=== PATIENT | male | born 1995 | race Caucasian/White ===

== ENCOUNTER 2016-09-18 17:52 | Inpatient (IN) | payer BC, MEDICAID ==
[~2016-09-18] VITALS: Ht 172.7 cm; Wt 59.4 kg
[2016-09-18] VITALS (9 sets, daily range): BP systolic 120–146; BP diastolic 55–97; PULSE 89–112; RESP 16–22; TEMP 97.4; O2SAT 96–100
[~2016-09-18 17:52] MED LIST: HUMSS SQ
[2016-09-18] MEDS ORDERED: SODIUM CHLOR 0.9% 1000 ML INJ 1,000 ML IV ONE ×2 (18:22→18:52)
--- NOTE | 2016-09-18 18:29 | PD ---
HPI Chief Complaint: GI Complaint Time Seen by Provider: 18:18 Travel History International Travel<30 days: No Contact w/Intl Traveler<30days: No Traveled to known affect area: No History of Present Illness HPI This patient complains of nausea and vomiting and general malaise. He feels thirsty. He is an insulin-dependent diabetic didn't bother to take his insulin today or yesterday. When I ask him on he can not come up with a reasonable answer. Sounds like he just didn't feel like it. Denies fever. He's had some runny nose and congestion. Symptoms are moderately severe. No alleviating factors. Duration is 24 hours. Accu-Chek now is 437 PFSH Past Medical History Diabetes: Yes (type 1 ) Social History Alcohol Use: No Tobacco Use: No Substance Use: No Allergies-Medications (Allergen,Severity, Reaction): Coded Allergies: No Known Allergies (Unverified , 09/18/16) Reported Meds & Prescriptions Reported Meds & Active Scripts Active Reported Novolin R Inj (Insulin Human Regular) 1,000 Unit/10 Ml Vial 0 SQ DIRECTED Sliding Scale As Directed. Lantus Inj (Insulin Glargine) 1,000 Unit/10 Ml Vial 17 Units SQ DAILY Review of Systems General / Constitutional: No: Fever Eyes: No: Visual changes HENT: Positive: Rhinorrhea, No: Headaches Cardiovascular: No: Chest Pain or Discomfort Respiratory: No: Shortness of Breath Gastrointestinal: Positive: Nausea, Vomiting, No: Abdominal Pain Genitourinary: No: Dysuria Musculoskeletal: Positive: Weakness, Cramping, No: Pain Skin: No Rash Neurologic: Positive: Weakness Psychiatric: No: Depression Endocrine: No: Polydipsia Hematologic/Lymphatic: No: Easy Bruising Physical Exam Narrative GENERAL: Thin well-developed patient with nausea and vomiting and malaise and cramping . SKIN: Warm and dry. HEAD: Atraumatic. Normocephalic. EYES: Pupils equal and round. No scleral icterus. No injection or drainage. ENT: No nasal bleeding or discharge. Mucous membranes pink and dry NECK: Trachea midline. No JVD. CARDIOVASCULAR: Regular rate and rhythm. No murmur appreciated. RESPIRATORY: No accessory muscle use. Clear to auscultation. Breath sounds equal bilaterally. GASTROINTESTINAL: Abdomen soft, non-tender, nondistended. Hepatic and splenic margins not palpable. MUSCULOSKELETAL: No obvious deformities. No clubbing. No cyanosis. No edema. NEUROLOGICAL: Awake and alert. No obvious cranial nerve deficits. Motor grossly within normal limits. Normal speech. PSYCHIATRIC: Appropriate mood and affect; insight and judgment poor given his noncompliance for no particular reason. Data Data Last Documented VS Vital Signs Date Time Temp Pulse Resp B/P Pulse Ox O2 Delivery O2 Flow Rate FiO2 09/18/16 19:02 96 18 146/71 99 Room Air 09/18/16 18:10 97.4 Orders Complete Blood Count With Diff (09/18/16 18:22) Comprehensive Metabolic Panel (09/18/16 18:22) Beta Hydroxybutyrate (Acetone) (09/18/16 18:22) Arterial Blood Gas (Abg) (09/18/16 18:22) Ecg Monitoring (09/18/16 18:22) Iv Access Insert/Monitor (09/18/16 18:22) Oximetry (09/18/16 18:22) NPO (09/18/16 18:22) Sodium Chlor 0.9% 1000 Ml Inj (Ns 1000 M (09/18/16 18:22) Sodium Chlor 0.9% 1000 Ml Inj (Ns 1000 M (09/18/16 18:52) Sodium Chloride 0.9% Flush (Ns Flush) (09/18/16 18:30) Insulin Human Regular Inj (Novolin R Inj (09/18/16 18:30) Sodium Chlor 0.9% 1000 Ml Inj (Ns 1000 M (09/18/16 18:50) Dext 5%-Nacl 0.9% 1000 Ml Inj (D5w-Ns 10 (09/18/16 18:50) Insulin Regular (Iv Infusion) (Novolin R (09/18/16 19:00) Admit To Inpatient (09/18/16 ) Manufacturing Operator / Telemetry (09/18/16 19:27) ^ Insert Iv (09/18/16 19:27) ^ Teach Patient (09/18/16 19:27) Diet Npo (09/19/16 Breakfast) Bedside Glucose ELIU.Q1H (09/18/16 19:27) Sodium Chlor 0.9% 1000 Ml Inj (Ns 1000 M (09/18/16 19:27) Potassium Chlor 40 Meq Premix (Kcl 40 Me (09/18/16 19:30) Potassium Chlor 40 Meq Premix (Kcl 40 Me (09/18/16 19:30) Potassium Chlor 20 Meq Premix (Kcl 20 Me (09/18/16 19:30) Potassium Chlor 20 Meq Premix (Kcl 20 Me (09/18/16 19:30) Potassium Chlor 20 Meq Premix (Kcl 20 Me (09/18/16 19:30) Potassium Chlor 20 Meq Premix (Kcl 20 Me (09/18/16 19:30) Potassium Chlor 20 Meq Premix (Kcl 20 Me (09/18/16 19:30) Potassium Chlor 20 Meq Premix (Kcl 20 Me (09/18/16 19:30) Sodium Bicarbonate 8.4% Inj (Sodium Bica (09/18/16 19:30) Sodium Bicarbonate 8.4% Inj (Sodium Bica (09/18/16 19:30) Sodium Phosphate Inj (Sodium Phosphate I (09/18/16 19:30) Basic Metabolic Panel (Bmp) (09/19/16 00:27) Basic Metabolic Panel (Bmp) (09/19/16 06:27) Basic Metabolic Panel (Bmp) (09/19/16 12:27) Basic Metabolic Panel (Bmp) (09/19/16 18:27) Magnesium (Mg) (09/19/16 00:27) Magnesium (Mg) (09/19/16 06:27) Magnesium (Mg) (09/19/16 12:27) Magnesium (Mg) (09/19/16 18:27) Phosphorus (Po4) (09/19/16 00:27) Phosphorus (Po4) (09/19/16 06:27) Phosphorus (Po4) (09/19/16 12:27) Phosphorus (Po4) (09/19/16 18:27) Beta Hydroxybutyrate (Acetone) (09/19/16 06:27) Beta Hydroxybutyrate (Acetone) (09/19/16 18:27) ^ Initiate Protocol (09/18/16 19:27) ^ Instruction (09/18/16 19:27) [facility] (09/18/16 19:30) Chlorhexidine 2% Cloth (Chlorhexidine 2% (09/19/16 04:00) Chlorhexidine 2% Cloth (Chlorhexidine 2% (09/18/16 19:30) [facility]sa Pcr Surveillance (09/18/16 19:27) Inpatient Certification (09/18/16 ) Ondansetron Inj (Zofran Inj) (09/18/16 19:30) Bisacodyl Supp (Dulcolax Supp) (09/18/16 19:30) Scd Bilateral/Knee High ELIU.BID (09/18/16 19:27) Marquez Bilateral/Knee High ELIU.QSHIFT (09/18/16 19:27) Acetaminophen (Tylenol) (09/18/16 19:30) Acetamin-Hydrocod 325-5 Mg ([place] 5-325 (09/18/16 19:30) Acetamin-Hydrocod 325-10 Mg ([place] 10-32 (09/18/16 19:30) Admit Order (Ed Use Only) (09/18/16 19:27) Labs Laboratory Tests Test 09/18/16 09/18/16 18:15 18:35 White Blood Count 14.7 TH/MM3 Red Blood Count 5.89 MIL/MM3 Hemoglobin 17.7 GM/DL Hematocrit 53.3 % Mean Corpuscular Volume 90.4 FL Mean Corpuscular Hemoglobin 30.0 PG Mean Corpuscular Hemoglobin 33.2 % Concent Red Cell Distribution Width 11.4 % Platelet Count 373 TH/MM3 Mean Platelet Volume 9.5 FL Neutrophils (%) (Auto) 88.2 % Lymphocytes (%) (Auto) 8.1 % Monocytes (%) (Auto) 3.3 % Eosinophils (%) (Auto) 0.1 % Basophils (%) (Auto) 0.3 % Neutrophils # (Auto) 13.0 TH/MM3 Lymphocytes # (Auto) 1.2 TH/MM3 Monocytes # (Auto) 0.5 TH/MM3 Eosinophils # (Auto) 0.0 TH/MM3 Basophils # (Auto) 0.0 TH/MM3 CBC Comment DIFF FINAL Differential Comment Sodium Level 135 MEQ/L Potassium Level 3.7 MEQ/L Chloride Level 95 MEQ/L Carbon Dioxide Level 13.1 MEQ/L Anion Gap 27 MEQ/L Blood Urea Nitrogen 14 MG/DL Creatinine 1.40 MG/DL Estimat Glomerular Filtration 65 ML/MIN Rate Random Glucose 420 MG/DL Calcium Level 9.6 MG/DL Total Bilirubin 0.8 MG/DL Aspartate Amino Transf 20 U/L (AST/SGOT) Alanine Aminotransferase 28 U/L (ALT/SGPT) Alkaline Phosphatase 161 U/L Total Protein 8.7 GM/DL Albumin 5.0 GM/DL B-Hydroxybutyrate 9.08 MMOL/L Blood Gas Puncture Site RT RADIAL Blood Gas Patient Temperature 98.6 Blood Gas HCO3 9 mmol/L Blood Gas Base Excess -18.4 mmol/L Blood Gas Oxygen Saturation 95 % Arterial Blood pH 7.18 Arterial Blood Partial 24 mmHG Pressure CO2 Arterial Blood Partial 125 mmHG Pressure O2 Arterial Blood Oxygen Content 24.2 Vol % Arterial Blood 1.7 % Carboxyhemoglobin Arterial Blood Methemoglobin 1.4 % Blood Gas Hemoglobin 18.0 G/DL Oxygen Delivery Device RA Blood Gas Inspired Oxygen 21 % MDM Medical Decision Making Medical Screen Exam Complete: Yes Emergency Medical Condition: Yes Medical Record Reviewed: Yes Differential Diagnosis DKA, dehydration, noncompliance Narrative Course I have reviewed the patient's electronic medical record. IV placed I gave him 2 full liters normal saline IV bolus I gave him 12 units IV regular insulin Patient is hyperglycemic and has prominent ketone breath, his presentation is concerning and consistent with DKA therefore appears critically ill CBC shows some leukocytosis otherwise normal Metabolic profile shows hyperglycemia and decreased bicarbonate LFTs are normal Beta hydroxybutyrate is elevated at 9 ABG significant abnormal with pH of 7.18 Patient has DKA and is critically ill. I've initiated insulin drip and more IV fluid I reviewed with the hospitalist will admit to the intermediate care for close monitoring Critical Care Narrative Aggregate critical care time was 40 minutes. Time to perform other separately billable procedures was not included in the critical care time. My time did not include minutes spent treating any other patients simultaneously or on activities that did not directly contribute to the patient's treatment. The services I provided to this patient were to treat and/or prevent clinically significant deterioration that could result in: Cardiac arrhythmia, metabolic instability, cardiopulmonary arrest I provided critical care services requiring my management, as noted below: Chart data review, documentation time, medication orders and management, vital sign assessments/reviewing monitor data, ordering and reviewing lab tests, ordering and interpreting/reviewing x-rays and diagnostic studies, care of the patient and discussion of the patient with the admitting physicians. Diagnosis Primary Impression: DKA (diabetic ketoacidoses) Qualified Code: E10.10 - Diabetic ketoacidosis without coma associated with type 1 diabetes mellitus Admitting Information Admitting Physician Requests: Admit Ronaldo Vallecillo MD Sep 18, 2016 18:29
[2016-09-18] MEDS ORDERED: INSULIN HUMAN REGULAR 1,000 UNITS/10 ML VIAL IVP ONE (18:30)
[2016-09-18] MEDS ORDERED: SODIUM CHLORIDE 0.9% FLUSH 5 ML FLUSH IVF PRN (18:30)
[2016-09-18 18:42] LABS: BLOOD GAS BASE EXCESS -18.4 mmol/L (-2-2); BLOOD GAS CARBOXYHEMOGLOBIN 1.7 % (0-4); BLOOD GAS HCO3 9 mmol/L (22-26); BLOOD GAS METHEMOGLOBIN 1.4 % (0-2); BLOOD GAS O2 HGB SATURATION 95 % (90-100); BLOOD GAS OXYGEN CONTENT 24.2 Vol % (12.0-20.0); BLOOD GAS PCO2 24 mmHG (38-42); BLOOD GAS PO2 125 mmHG (61-120); CRITICAL VALUE YES; DRAW SITE RT RADIAL; FIO2 21 %; NUMBER OF ARTERIAL PUNCTURES 1; OXYGEN DEVICE RA; STAT YES; TEMP CORR TO 98.6; ULNAR PULSE PRESENT
[2016-09-18 18:48] LABS: BASOPHIL % 0.3 % (0.0-2.0); EOSINOPHIL % 0.1 % (0.0-4.0); HEMATOCRIT 53.3 % (39.0-51.0); LYMPH % 8.1 % (9.0-44.0); LYMPHOCYTE # 1.2 TH/MM3 (1.0-4.8); MEAN CELL VOLUME 90.4 FL (80.0-100.0); MEAN CORPUSCULAR HGB CONC 33.2 % (32.0-36.0); MONO % 3.3 % (0.0-8.0); NEUT % 88.2 % (16.0-70.0); PLATELET COUNT 373 TH/MM3 (150-450); RED BLOOD COUNT 5.89 MIL/MM3 (4.50-5.90); RED CELL DISTRIBUTION WIDTH 11.4 % (11.6-17.2); WHITE BLOOD COUNT 14.7 TH/MM3 (4.0-11.0)
[2016-09-18] MEDS ORDERED: LANTUS2P SQ (18:50)
[2016-09-18] MEDS ORDERED: NOVORP2 SQ (18:50)
[2016-09-18 18:56] LABS: HEMO FLAGS DIFF FINAL
[2016-09-18 18:58] LABS: CHLORIDE 95 MEQ/L (98-107); POTASSIUM 3.7 MEQ/L (3.5-5.1); SODIUM (NA) 135 MEQ/L (136-145)
[2016-09-18] MEDS ORDERED: INSULIN REGULAR (IV INFUSION) 100 UNITS in SODIUM CHLORIDE 0.9% INJ 99 ML IV SCH (19:00)
[2016-09-18 19:02] LABS: ANION GAP 27 MEQ/L (5-15); BICARBONATE 13.1 MEQ/L (21.0-32.0)
[2016-09-18 19:13] LABS: ALKALINE PHOSPHATASE 161 U/L (45-117); ALT (GPT) 28 U/L (9-52); AST (GOT) 20 U/L (15-39); BLOOD UREA NITROGEN 14 MG/DL (7-18); GLOMERULAR FILTRATION RATE 65 ML/MIN (>89); TOTAL BILIRUBIN ADULT 0.8 MG/DL (0.2-1.0)
[2016-09-18 19:20] LABS: BETA-HYDROXYBUTYRATE 9.08 MMOL/L (0.00-0.39)
[2016-09-18] MEDS ORDERED: SODIUM CHLOR 0.9% 1000 ML INJ 1,000 ML IV SCH (19:27)
[2016-09-18] MEDS ORDERED: CHLORHEXIDINE GLUCONATE 2 % 1 PACK (2 CLOTHS) TOP PRN (19:30)
[2016-09-18] MEDS ORDERED: ONDANSETRON HCL 4 MG/2 ML VIAL IVP PRN (19:30)
[2016-09-18] MEDS ORDERED: ACETAMINOPHEN 325 MG TAB PO PRN (19:30)
[2016-09-18] MEDS ORDERED: POTASSIUM CHLOR 40 MEQ PREMIX 100 ML IV PRN ×2 (19:30)
[2016-09-18] MEDS ORDERED: ACETAMINOPHEN/HYDROcodone 325 MG/10 MG TAB PO PRN (19:30)
[2016-09-18] MEDS: SODIUM CHLOR 0.9% 1000 ML INJ 1,000 ML IV SCH ×2 (19:30→22:50)
[2016-09-18] MEDS ORDERED: POTASSIUM CHLOR 20 MEQ PREMIX 100 ML IV PRN ×5 (19:30)
[2016-09-18] MEDS ORDERED: MISCELLANEOUS NURSING INFORMATION XX SCH (19:30)
[2016-09-18] MEDS ORDERED: SODIUM PHOSPHATE INJ 15 MMOL in SODIUM CHLORIDE 0.9% INJ 100 ML IV PRN (19:30)
[2016-09-18] MEDS ORDERED: ACETAMINOPHEN/HYDROcodone 325 MG/5 MG TAB PO PRN (19:30)
[2016-09-18] MEDS ORDERED: BISACODYL 10 MG SUPP PR PRN (19:30)
[2016-09-18] MEDS ORDERED: SODIUM BICARBONATE 8.4% SOLN 50 MEQ/50 ML VIAL IV PRN ×2 (19:30)
[2016-09-18] MEDS: DEXT 5%-NACL 0.9% 1000 ML INJ 1,000 ML IV SCH (21:40)
[2016-09-18] MEDS: POTASSIUM CHLOR 20 MEQ PREMIX 100 ML IV PRN (23:26)
[2016-09-19] VITALS (15 sets, daily range): BP systolic 97–126; BP diastolic 40–73; PULSE 62–92; RESP 16–25; TEMP 97.9–99.2; O2SAT 98–100
[2016-09-19 01:31] LABS: BICARBONATE 18.4 MEQ/L (21.0-32.0); MAGNESIUM 1.8 MG/DL (1.5-2.5); POTASSIUM 4.1 MEQ/L (3.5-5.1)
[2016-09-19] MEDS: POTASSIUM CHLOR 20 MEQ PREMIX 100 ML IV PRN ×2 (02:07→04:06)
[2016-09-19] MEDS: DEXT 5%-NACL 0.9% 1000 ML INJ 1,000 ML IV SCH (02:08)
[2016-09-19] MEDS ORDERED: CHLORHEXIDINE GLUCONATE 2 % 1 PACK (2 CLOTHS) TOP SCH (04:00)
[2016-09-19 08:40] LABS: POTASSIUM 3.6 MEQ/L (3.5-5.1)
[2016-09-19 08:43] LABS: BICARBONATE 22.1 MEQ/L (21.0-32.0)
[2016-09-19 08:59] LABS: BETA-HYDROXYBUTYRATE 0.22 MMOL/L (0.00-0.39)
--- NOTE | 2016-09-19 09:39 | HHI.HP ---
[facility]Staff Admission Diagnosis DKA Diagnoses: (1) DKA (diabetic ketoacidoses) Diagnosis: Principal (2) Acute renal failure Diagnosis: Principal (3) Hyponatremia Diagnosis: Principal Chief Complaint: Nausea vomiting Travel History International Travel<30 Days: No Contact w/Intl Traveler <30 Da: No Traveled to Known Affected Are: No History of Present Illness 21 year-old male with known history of insulin-dependent diabetes who presented to hospital because of nausea, vomiting, elevated glucose. Patient states that he normal state of health until yesterday morning. Patient states that his mother recommended him to use melatonin the night before in order to sleep. The patient states that he woke up yesterday morning very lethargic and had to crawl out of bed. He did go to the store to try to get him some saltines in order to eat. However, when he made it back to the house he started having nausea and vomiting. He checked his glucose was 399. He didn't think much about it because he is had much higher glucose readings and that in the past. When his symptoms did not improve his girlfriend recommended him to come to the hospital. Patient was found to have diabetic ketoacidosis and recommended admission to the ICU with insulin drip protocol. Upon evaluating the patient this morning he states that he is hungry and would like to eat. His anion gap has closed. He is much improved. Review of Systems Constitutional: DENIES: Diaphoretic episodes, Fatigue, Fever, Weight gain, Weight loss, Chills, Dizziness, Change in appetite, Night Sweats Eyes: DENIES: Blurred vision, Diplopia, Eye inflammation, Eye pain, Vision loss , Double Vision Ears, nose, mouth, throat: DENIES: Vertigo, Nasal discharge, Throat pain, Ear Pain, Running Nose, Sinus Pain Respiratory: DENIES: Apneas, Cough, Snoring, Wheezing, Hemoptysis, Sputum production, Shortness of breath Cardiovascular: DENIES: Chest pain, Palpitations, Syncope, Dyspnea on Exertion , Lower Extremity Edema, Orthopnea Gastrointestinal: COMPLAINS OF: Nausea, Vomiting, DENIES: Abdominal pain, Black stools, Bloody stools, Constipation, Diarrhea, Difficulty Swallowing, Anorexia Neurologic: DENIES: Abnormal gait, Headache, Localized weakness, Paresthesias, Seizures, Speech Problems, Tremor, Poor Balance Past Family Social History Past Medical History Diabetes Past Surgical History No previous surgeries Reported Medications Reported Meds & Active Scripts Active Reported Novolin R Inj (Insulin Human Regular) 1,000 Unit/10 Ml Vial 0 SQ DIRECTED Sliding Scale As Directed. Lantus Inj (Insulin Glargine) 1,000 Unit/10 Ml Vial 17 Units SQ DAILY Allergies: Coded Allergies: No Known Allergies (Unverified , 09/18/16) Family History Reviewed and unremarkable Social History Patient denies any tobacco, alcohol rarely, marijuana rarely last time he smoked was last week. Physical Exam Vital Signs Vital Signs Date Time Temp Pulse Resp B/P Pulse Ox O2 Delivery O2 Flow Rate FiO2 09/19/16 06:00 70 09/19/16 06:00 70 18 105/40 09/19/16 05:00 78 24 112/56 09/19/16 04:00 98.8 80 19 105/56 100 09/19/16 04:00 80 09/19/16 03:00 90 25 09/19/16 02:00 92 09/19/16 02:00 92 22 09/19/16 01:00 86 19 124/70 100 09/19/16 00:00 98.0 86 19 124/70 100 09/19/16 00:00 86 09/18/16 23:00 94 22 98 09/18/16 22:10 92 16 130/55 09/18/16 22:00 89 09/18/16 21:28 94 18 132/62 99 Room Air 09/18/16 20:10 100 18 120/70 100 Room Air 09/18/16 19:02 96 18 146/71 99 Room Air 09/18/16 18:27 98 Room Air 09/18/16 18:26 18 09/18/16 18:10 97.4 112 16 143/97 98 Physical Exam GENERAL: Well-developed, well-nourished, in no acute distress. alert and orientated HEENT: Head is normocephalic without any lesions or masses noted. Facial features are symmetric. Eyes: Pupils equal round reactive to light. Extraocular muscles are intact. Conjunctivae were clear. Oropharyngeal: Pharynx without any erythema edema. Tongue is midline without deviation. Buccal mucosa is moist without any masses or lesions NECK: Supple without any masses. Trachea midline no deviation. No JVD, no bruits are appreciated CARDIAC: Regular rhythm, regular rate. S1/S2 are heard. No murmurs gallops or rubs. LUNGS: Clear to auscultation bilaterally. No wheeze, rhonchi or rales. No use of accessory muscles on inspiration or expiration. ABDOMEN: Soft, nontender. Nondistended. Bowel sounds heard in all 4 quadrants. No organomegaly or masses. Negative rebound, negative guarding EXTREMITIES: No edema, pulses are equal bilaterally. No cyanosis or clubbing NEUROLOGY: Mood and affect appear appropriate. Cranial nerves II through XII grossly intact. Muscle strength 5/5 in upper and lower extremities bilaterally. Deep tendon reflexes are 2+ in upper and lower extremities bilaterally. Laboratory Laboratory Tests Test 09/18/16 09/18/16 09/19/16 09/19/16 18:15 18:35 00:30 08:00 White Blood Count 14.7 Red Blood Count 5.89 Hemoglobin 17.7 Hematocrit 53.3 Mean Corpuscular Volume 90.4 Mean Corpuscular Hemoglobin 30.0 Mean Corpuscular Hemoglobin 33.2 Concent Red Cell Distribution Width 11.4 Platelet Count 373 Mean Platelet Volume 9.5 Neutrophils (%) (Auto) 88.2 Lymphocytes (%) (Auto) 8.1 Monocytes (%) (Auto) 3.3 Eosinophils (%) (Auto) 0.1 Basophils (%) (Auto) 0.3 Neutrophils # (Auto) 13.0 Lymphocytes # (Auto) 1.2 Monocytes # (Auto) 0.5 Eosinophils # (Auto) 0.0 Basophils # (Auto) 0.0 CBC Comment DIFF FINAL Differential Comment Sodium Level 135 144 144 Potassium Level 3.7 4.1 3.6 Chloride Level 95 112 115 Carbon Dioxide Level 13.1 18.4 22.1 Anion Gap 27 14 7 Blood Urea Nitrogen 14 9 8 Creatinine 1.40 1.10 0.91 Estimat Glomerular Filtration 65 85 106 Rate Random Glucose 420 189 151 Calcium Level 9.6 7.9 8.1 Total Bilirubin 0.8 Aspartate Amino Transf 20 (AST/SGOT) Alanine Aminotransferase 28 (ALT/SGPT) Alkaline Phosphatase 161 Total Protein 8.7 Albumin 5.0 B-Hydroxybutyrate 9.08 0.22 Blood Gas Puncture Site RT RADIAL Blood Gas Patient Temperature 98.6 Blood Gas HCO3 9 Blood Gas Base Excess -18.4 Blood Gas Oxygen Saturation 95 Arterial Blood pH 7.18 Arterial Blood Partial 24 Pressure CO2 Arterial Blood Partial 125 Pressure O2 Arterial Blood Oxygen Content 24.2 Arterial Blood 1.7 Carboxyhemoglobin Arterial Blood Methemoglobin 1.4 Blood Gas Hemoglobin 18.0 Oxygen Delivery Device RA Blood Gas Inspired Oxygen 21 Phosphorus Level 1.3 1.7 Magnesium Level 1.8 2.0 Result Diagram: 09/18/16 1815 09/19/16 0800 Assessment and Plan Assessment and Plan Diabetic ketoacidosis Patient admitted to ICU on insulin drip protocol We'll convert to long-acting insulin and sliding scale insulin start diabetic diet Pseudohyponatremia Corrected when diabetes improved Acute renal failure, from dehydration, nausea vomiting Improved with IV hydration DVT prevention Sequential compression devices Written by Ronaldo Castellanos PA-C, acting as scribe for Dr. Erazo on 09/19/16 at 1145. The documentation accurately reflects the work and decisions performed face-to- face by Dr. Erazo on 09/19/16 at 1145 Physician Certification 2 Midnight Certification Type: Admission for Inpatient Services Order for Inpatient Services The services are ordered in accordance with Medicare regulations or non- Medicare payer requirements, as applicable. In the case of services not specified as inpatient-only, they are appropriately provided as inpatient services in accordance with the 2-midnight benchmark. Estimated LOS (days): 1 days is the estimated time the patient will need to remain in the hospital, assuming treatment plan goals are met and no additional complications. Post-Hospital Plan: Not yet determined Problem Qualifiers (1) DKA (diabetic ketoacidoses): Qualified Code: E10.10 - Diabetic ketoacidosis without coma associated with type 1 diabetes mellitus Ronaldo Castellanos Sep 19, 2016 09:39
[2016-09-19] MEDS ORDERED: INSULIN DETEMIR 100 UNITS/ML VIAL SQ SCH ×2 (09:45→11:15)
[2016-09-19] MEDS ORDERED: GLUCAGON 1 MG/ML VIAL OTHER PRN (10:00)
[2016-09-19] MEDS ORDERED: DEXTROSE 50% IN WATER 50 ML VIAL(D50) IV PRN (10:00)
[2016-09-19 10:06] LABS: AUTOMATED NEUTROPHIL # 7.6 TH/MM3 (1.8-7.7); BASOPHIL # 0.1 TH/MM3 (0-0.2); BASOPHIL % 0.7 % (0.0-2.0); EOSINOPHIL # 0.1 TH/MM3 (0-0.4); EOSINOPHIL % 0.5 % (0.0-4.0); HEMATOCRIT 39.5 % (39.0-51.0); HEMO FLAGS DIFF FINAL; LYMPH % 18.1 % (9.0-44.0); LYMPHOCYTE # 1.9 TH/MM3 (1.0-4.8); MEAN CELL VOLUME 90.6 FL (80.0-100.0); MEAN CORPUSCULAR HEMOGLOBIN 31.2 PG (27.0-34.0); MEAN CORPUSCULAR HGB CONC 34.5 % (32.0-36.0); MONO % 7.6 % (0.0-8.0); NEUT % 73.1 % (16.0-70.0); PLATELET COUNT 234 TH/MM3 (150-450); RED BLOOD COUNT 4.36 MIL/MM3 (4.50-5.90); RED CELL DISTRIBUTION WIDTH 12.1 % (11.6-17.2); WHITE BLOOD COUNT 10.5 TH/MM3 (4.0-11.0)
[2016-09-19] MEDS: INSULIN ASPART SUPPLEMENTAL SCALE SQ SCH ×2 (12:52→17:51)
[2016-09-19 12:56] LABS: POTASSIUM 3.5 MEQ/L (3.5-5.1)
[2016-09-19 12:59] LABS: BICARBONATE 20.2 MEQ/L (21.0-32.0); MAGNESIUM 1.8 MG/DL (1.5-2.5)
[2016-09-19] MEDS ORDERED: NS + KCL 20 MEQ INJ 1,000 ML IV SCH (15:15)
[2016-09-19] MEDS ORDERED: POTASSIUM PHOSPHATE MONOBASIC 500 MG TAB PO ONE (15:30)
== END 2016-09-19 19:40 | disposition home or self-care (01) | DRG 638 ==
LOC: PHED 17:52 → PHEDA 19:34 → PHICU 22:18
PROVIDERS: ADMIT Family Medicine; ATTEND Family Medicine
DX: E10.10 Type 1 diabetes mellitus with ketoacidosis without coma (principal); N17.9 Acute kidney failure, unspecified; E87.1 Hypo-osmolality and hyponatremia; E86.0 Dehydration; Z79.4 Long term (current) use of insulin
CPT/HCPCS: 36600; 80048; 80053; 82010; 82805; 82948; 83735; 84100; 85025; 87641; 96361; 96374; J1815; J1817; J3480; J7030; J7042

== ENCOUNTER 2017-09-08 15:04 | Inpatient (IN) | payer BC ==
[~2017-09-08] VITALS: Ht 172.7 cm; Wt 58.6 kg
[~2017-09-08 15:04] MED LIST changes: -HUMSS SQ; +LANTUS2P SQ; +NOVORP2 SQ
[2017-09-08] MEDS ORDERED: SODIUM CHLOR 0.9% 1000 ML INJ 1,000 ML IV ONE ×2 (15:17→15:47)
--- NOTE | 2017-09-08 15:24 | PD ---
HPI Chief Complaint: Abnormal Results Time Seen by Provider: 15:13 Travel History International Travel<30 days: No Contact w/Intl Traveler<30days: No History of Present Illness HPI 22-year-old insulin-dependent diabetic presents to emergency Department with 3 day history of nausea, vomiting, and cramping. Patient states he ran out of his Levemir 3 days ago. He is to take 25 mg daily. He has no one but has not checked his blood sugar in several days. Patient has history of DKA in the past. Patient has no history of pancreatitis in the past. Patient states he is still urinating, but he knows he is dehydrated. Patient denies fever, chills , or upper respiratory symptoms. He has no chest pains or palpitations. He has no known drug allergies. PFSH Past Medical History Cancer: No Cardiovascular Problems: No Diabetes: Yes (type 1 ) Diminished Hearing: No Endocrine: Yes Genitourinary: No Immune Disorder: No Musculoskeletal: Yes Neurologic: No Psychiatric: No Reproductive: No Respiratory: No Social History Alcohol Use: Yes (occ) Tobacco Use: Yes (occ) Substance Use: No Allergies-Medications (Allergen,Severity, Reaction): Coded Allergies: No Known Allergies (Unverified Allergy, Unknown, 09/08/17) Reported Meds & Prescriptions Reported Meds & Active Scripts Active Reported Novolin R Inj (Insulin Human Regular) 1,000 Unit/10 Ml Vial 0 SQ DIRECTED Sliding Scale As Directed. Lantus Inj (Insulin Glargine) 1,000 Unit/10 Ml Vial 17 Units SQ DAILY Review of Systems Except as stated in HPI: all other systems reviewed are Neg General / Constitutional: No: Fever, Chills Eyes: No: Diploplia, Blurred Vision, Photophobia, Drainage, Blind Spots, Visual changes, Blindness HENT: Positive: Headaches, Lightheadedness, No: Vertigo, Sore Throat, Rhinitis , Rhinorrhea, Congestion, Nosebleed, Neck Stiffness, Neck Pain, Dental Difficulties, Earache Cardiovascular: No: Chest Pain or Discomfort Respiratory: No: Cough, Shortness of Breath, Wheezing Gastrointestinal: Positive: Nausea, Vomiting, No: Diarrhea, Abdominal Pain Genitourinary: Positive: Frequency, No: Urgency, Dysuria Musculoskeletal: No: Pain Skin: No Rash Neurologic: No: Weakness Psychiatric: No: Depression Endocrine: Positive: Polyuria, Polydipsia Hematologic/Lymphatic: No: Easy Bruising Physical Exam Narrative GENERAL: Patient is thin and appears in mild to moderate distress. SKIN: Warm and dry. Normal color. Decreased turgor. HEAD: Atraumatic. Normocephalic. EYES: Pupils equal and round. No scleral icterus. No injection or drainage. ENT: No nasal bleeding or discharge. Mucous membranes pink and dry. Pharynx is clear. Airway is patent. TMs are clear bilaterally. NECK: Trachea midline. Supple and nontender. CARDIOVASCULAR: Regular rate and rhythm. RESPIRATORY: No accessory muscle use. Clear to auscultation. Breath sounds equal bilaterally. GASTROINTESTINAL: Abdomen soft, non-tender, nondistended. Hepatic and splenic margins not palpable. MUSCULOSKELETAL: Extremities without clubbing, cyanosis, or edema. No obvious deformities. NEUROLOGICAL: Awake and alert. No obvious cranial nerve deficits. Motor grossly within normal limits. Five out of 5 muscle strength in the arms and legs. Normal speech. PSYCHIATRIC: Appropriate mood and affect; insight and judgment normal. Data Data Last Documented VS Vital Signs Date Time Temp Pulse Resp B/P (MAP) Pulse Ox O2 Delivery O2 Flow Rate FiO2 09/08/17 16:42 97 24 139/63 (88) 95 Room Air 09/08/17 15:25 97.5 Orders Orders Electrocardiogram (09/08/17 15:17) Complete Blood Count With Diff (09/08/17 15:17) Comprehensive Metabolic Panel (09/08/17 15:17) Magnesium (Mg) (09/08/17 15:17) Phosphorus (Po4) (09/08/17 15:17) Beta Hydroxybutyrate (Acetone) (09/08/17 15:17) Osmolality,Serum (09/08/17 15:17) Lactic Acid (09/08/17 15:17) Urinalysis - C+S If Indicated (09/08/17 15:17) Chest, Single Ap (09/08/17 15:17) Blood Gas Venous (Vbg) (09/08/17 15:17) Blood Glucose (09/08/17 15:17) Blood Glucose (09/08/17 16:17) Blood Glucose (09/08/17 15:17) Ecg Monitoring (09/08/17 15:17) Iv Access Insert/Monitor (09/08/17 15:17) Oximetry (09/08/17 15:17) NPO (09/08/17 15:17) Sodium Chlor 0.9% 1000 Ml Inj (Ns 1000 M (09/08/17 15:17) Sodium Chlor 0.9% 1000 Ml Inj (Ns 1000 M (09/08/17 15:47) Sodium Chloride 0.9% Flush (Ns Flush) (09/08/17 15:30) Lipase (09/08/17 15:17) Insulin Human Regular Inj (Novolin R Inj (09/08/17 15:30) Ondansetron Inj (Zofran Inj) (09/08/17 15:30) Sodium Chlor 0.9% 1000 Ml Inj (Ns 1000 M (09/08/17 15:34) Dext 5%-Nacl 0.9% 1000 Ml Inj (D5w-Ns 10 (09/08/17 15:34) Insulin Human Regular Inj (Novolin R Inj (09/08/17 15:45) Insulin Regular (Iv Infusion) (Novolin R (09/08/17 16:00) Potassium Chlor 40 Meq Premix (Kcl 40 Me (09/08/17 15:45) Potassium Chlor 40 Meq Premix (Kcl 40 Me (09/08/17 15:45) Potassium Chlor 20 Meq Premix (Kcl 20 Me (09/08/17 15:45) Potassium Chlor 20 Meq Premix (Kcl 20 Me (09/08/17 15:45) Potassium Chlor 20 Meq Premix (Kcl 20 Me (09/08/17 15:45) Potassium Chlor 20 Meq Premix (Kcl 20 Me (09/08/17 15:45) Potassium Chlor 20 Meq Premix (Kcl 20 Me (09/08/17 15:45) Potassium Chlor 20 Meq Premix (Kcl 20 Me (09/08/17 15:45) Sodium Bicarbonate 8.4% Inj (Sodium Bica (09/08/17 15:45) Sodium Phosphate Inj (Sodium Phosphate I (09/08/17 15:45) Admit Order (Ed Use Only) (09/08/17 16:44) Labs Laboratory Tests Test 09/08/17 15:20 09/08/17 15:30 Blood Gas Puncture Site NURSE Blood Gas Patient Temperature 98.6 Venous Blood pH 7.07 Venous Blood Partial Pressure CO2 28 mmHg Venous Blood Partial Pressure O2 26 mmHg Venous Blood HCO3 8 mmol/L Venous Blood Oxygen Saturation 43 % Venous Blood Oxygen Content 11.7 Vol % Venous Blood Base Excess -20.5 mmol/L Blood Gas Inspired Oxygen 21 % White Blood Count 11.4 TH/MM3 Red Blood Count 6.15 MIL/MM3 Hemoglobin 19.1 GM/DL Hematocrit 56.7 % Mean Corpuscular Volume 92.2 FL Mean Corpuscular Hemoglobin 31.0 PG Mean Corpuscular Hemoglobin Concent 33.7 % Red Cell Distribution Width 13.2 % Platelet Count 347 TH/MM3 Mean Platelet Volume 9.2 FL Neutrophils (%) (Auto) 88.3 % Lymphocytes (%) (Auto) 7.3 % Monocytes (%) (Auto) 3.7 % Eosinophils (%) (Auto) 0.1 % Basophils (%) (Auto) 0.6 % Neutrophils # (Auto) 10.0 TH/MM3 Lymphocytes # (Auto) 0.8 TH/MM3 Monocytes # (Auto) 0.4 TH/MM3 Eosinophils # (Auto) 0.0 TH/MM3 Basophils # (Auto) 0.1 TH/MM3 CBC Comment DIFF FINAL Differential Comment Blood Urea Nitrogen 14 MG/DL Creatinine 1.47 MG/DL Random Glucose 310 MG/DL Total Protein 9.7 GM/DL Albumin 5.6 GM/DL Calcium Level 8.9 MG/DL Phosphorus Level 4.5 MG/DL Magnesium Level 2.0 MG/DL Alkaline Phosphatase 141 U/L Aspartate Amino Transf (AST/SGOT) 25 U/L Alanine Aminotransferase (ALT/SGPT) 34 U/L Total Bilirubin 0.7 MG/DL Sodium Level 132 MEQ/L Potassium Level 4.2 MEQ/L Chloride Level 97 MEQ/L Carbon Dioxide Level 9.6 MEQ/L Anion Gap 25 MEQ/L Estimat Glomerular Filtration Rate 60 ML/MIN Serum Osmolality 318 MOSM/KG Lactic Acid Level 3.2 mmol/L Lipase 85 U/L B-Hydroxybutyrate 9.78 MMOL/L MDM Medical Decision Making Medical Screen Exam Complete: Yes Emergency Medical Condition: Yes Medical Record Reviewed: Yes Differential Diagnosis Nausea and vomiting. Dehydration. Hyperglycemia. DKA. Pancreatitis. Narrative Course Patient appears medically stable. Labs ordered including CBC, CMP, magnesium, phosphorus, urinalysis and lipase. EKG, chest x-ray, and urinalysis is ordered. 2 L normal saline bolus is given. Bedside glucose is 307, however venous blood gas shows: PH 7.067, PCO2 of 27.8, PO2 of 26.3. HCO3 of 7.6, base excess of -20.5. Patient discussed with Dr. Juarez who recommends starting ketoacidosis protocol with insulin drip with D5W per protocol. Chest x-ray is unremarkable. EKG shows normal sinus rhythm without significant ST changes. This is reviewed with Dr. Juarez. CBC shows WBC 11.4, RBC of 6.5, hemoglobin is 19.1, hematocrit 56.7. Chemistry significant for sodium 132, chloride 97, carbon dioxide is 9.6, anion gap is 25, creatinine is 1.47, GFR 60, random glucose 310, serum osmolality is 318, lactic acid 3.2. Alkaline phosphatase 141, total protein 9.7, albumin is 5.6, lipase is 85. Beta hydroxybutyrate is 9.78. Call was placed to the hospitalist and the patient is discussed with Dr. Thayer, and the patient is admitted to the ICU. Diagnosis Primary Impression: DKA (diabetic ketoacidoses) Qualified Codes: E10.10 - Type 1 diabetes mellitus with ketoacidosis without coma Admitting Information Admitting Physician Requests: Admit Condition: Stable Mario Wood Sep 08, 2017 15:24
[2017-09-08 15:25] VITALS: BP 152/83; PULSE 88; RESP 24; TEMP 97.5; O2SAT 100
[2017-09-08] MEDS ORDERED: ONDANSETRON HCL 4 MG/2 ML VIAL IV PUSH ONE (15:30)
[2017-09-08] MEDS ORDERED: INSULIN HUMAN REGULAR 1,000 UNITS/10 ML VIAL IV PUSH ONE ×2 (15:30→15:45)
[2017-09-08] MEDS ORDERED: SODIUM CHLORIDE 0.9% FLUSH 10 ML FLUSH IVF PRN (15:30)
[2017-09-08] MEDS ORDERED: DEXT 5%-NACL 0.9% 1000 ML INJ 1,000 ML IV SCH (15:34)
[2017-09-08] MEDS ORDERED: SODIUM CHLOR 0.9% 1000 ML INJ 1,000 ML IV SCH ×2 (15:34→16:46)
[2017-09-08] MEDS ORDERED: POTASSIUM CHLOR 20 MEQ PREMIX 100 ML IV PRN ×12 (15:45→17:00)
[2017-09-08] MEDS ORDERED: POTASSIUM CHLOR 40 MEQ PREMIX 100 ML IV PRN ×4 (15:45→17:00)
[2017-09-08] MEDS ORDERED: SODIUM BICARBONATE 8.4% SOLN 50 MEQ/50 ML VIAL IV PUSH PRN ×3 (15:45→17:00)
[2017-09-08] MEDS ORDERED: SODIUM PHOSPHATE INJ 15 MMOL in SODIUM CHLORIDE 0.9% INJ 100 ML IV PRN ×2 (15:45→17:00)
[2017-09-08 15:47] LABS: BASOPHIL # 0.1 TH/MM3 (0-0.2); BASOPHIL % 0.6 % (0.0-2.0); EOSINOPHIL % 0.1 % (0.0-4.0); HEMATOCRIT 56.7 % (39.0-51.0); HEMOGLOBIN 19.1 GM/DL (13.0-17.0); LYMPH % 7.3 % (9.0-44.0); LYMPHOCYTE # 0.8 TH/MM3 (1.0-4.8); MEAN CELL VOLUME 92.2 FL (80.0-100.0); MEAN CORPUSCULAR HGB CONC 33.7 % (32.0-36.0); MEAN PLATELET VOLUME 9.2 FL (7.0-11.0); MONO % 3.7 % (0.0-8.0); MONOCYTE # 0.4 TH/MM3 (0-0.9); NEUT % 88.3 % (16.0-70.0); PLATELET COUNT 347 TH/MM3 (150-450); RED BLOOD COUNT 6.15 MIL/MM3 (4.50-5.90); RED CELL DISTRIBUTION WIDTH 13.2 % (11.6-17.2); WHITE BLOOD COUNT 11.4 TH/MM3 (4.0-11.0)
[2017-09-08] MEDS ORDERED: INSULIN REGULAR (IV INFUSION) 100 UNITS in SODIUM CHLORIDE 0.9% INJ 99 ML IV PRN ×2 (16:00→18:00)
--- NOTE | 2017-09-08 16:00 | RADRPT ---
EXAM DATE/TIME: 09/08/2017 15:33 [facility] COMPARISON: No previous studies available for comparison. INDICATIONS : Vomiting MEDICAL HISTORY : diabetic SURGICAL HISTORY : None. ENCOUNTER: Initial ACUITY: 1 day PAIN SCORE: 0/10 LOCATION: Bilateral chest FINDINGS: A single view of the chest demonstrates the lungs to be symmetrically aerated without evidence of mas s, infiltrate or effusion. The cardiomediastinal contours are unremarkable. Osseous structures are intact. CONCLUSION: Normal examination for a patient of this age. João Holt MD on September 08, 2017 at 15:57 Board Certified Radiologist. This report was verified electronically.
[2017-09-08 16:14] LABS: ALBUMIN 5.6 GM/DL (3.4-5.0); ALT (GPT) 34 U/L (12-78); AST (GOT) 25 U/L (15-37); BICARBONATE 9.6 MEQ/L (21.0-32.0); BLOOD UREA NITROGEN 14 MG/DL (7-18); CALCIUM 8.9 MG/DL (8.5-10.1); CHLORIDE 97 MEQ/L (98-107); CREATININE 1.47 MG/DL (0.60-1.30); GLOMERULAR FILTRATION RATE 60 ML/MIN (>89); GLUCOSE,RANDOM 310 MG/DL (74-106); LIPASE 85 U/L (73-393); PHOSPHORUS 4.5 MG/DL (2.5-4.9); SODIUM (NA) 132 MEQ/L (136-145)
[2017-09-08 16:25] LABS: ALKALINE PHOSPHATASE 141 U/L (45-117); TOTAL BILIRUBIN ADULT 0.7 MG/DL (0.2-1.0); TOTAL PROTEIN 9.7 GM/DL (6.4-8.2)
--- NOTE | 2017-09-08 16:33 | PD ---
Physical Exam Narrative GENERAL: SKIN: Warm and dry. HEAD: Atraumatic. Normocephalic. EYES: Pupils equal and round. No scleral icterus. No injection or drainage. ENT: No nasal bleeding or discharge. Mucous membranes pink and moist. NECK: Trachea midline. No JVD. CARDIOVASCULAR: Regular rate and rhythm. BORDERLINE TACHYCARDIA INITIALLY RESPIRATORY: No accessory muscle use. Clear to auscultation. Breath sounds equal bilaterally. HOWEVER TACHYPNEIC RATE AROUND 28 GASTROINTESTINAL: Abdomen soft, non-tender, nondistended. MUSCULOSKELETAL: Extremities without clubbing, cyanosis, or edema. No obvious deformities. NEUROLOGICAL: Awake and alert. No obvious cranial nerve deficits. Motor grossly within normal limits. Five out of 5 muscle strength in the arms and legs. Normal speech. PSYCHIATRIC: Appropriate mood and affect; insight and judgment normal. Data Data Last Documented VS Vital Signs Date Time Temp Pulse Resp B/P (MAP) Pulse Ox O2 Delivery O2 Flow Rate FiO2 09/08/17 15:29 87 26 100 Room Air 09/08/17 15:25 97.5 152/83 (106) Orders Orders Electrocardiogram (09/08/17 15:17) Complete Blood Count With Diff (09/08/17 15:17) Comprehensive Metabolic Panel (09/08/17 15:17) Magnesium (Mg) (09/08/17 15:17) Phosphorus (Po4) (09/08/17 15:17) Beta Hydroxybutyrate (Acetone) (09/08/17 15:17) Osmolality,Serum (09/08/17 15:17) Lactic Acid (09/08/17 15:17) Urinalysis - C+S If Indicated (09/08/17 15:17) Chest, Single Ap (09/08/17 15:17) Blood Gas Venous (Vbg) (09/08/17 15:17) Blood Glucose (09/08/17 15:17) Blood Glucose (09/08/17 16:17) Blood Glucose (09/08/17 15:17) Ecg Monitoring (09/08/17 15:17) Iv Access Insert/Monitor (09/08/17 15:17) Oximetry (09/08/17 15:17) NPO (09/08/17 15:17) Sodium Chlor 0.9% 1000 Ml Inj (Ns 1000 M (09/08/17 15:17) Sodium Chlor 0.9% 1000 Ml Inj (Ns 1000 M (09/08/17 15:47) Sodium Chloride 0.9% Flush (Ns Flush) (09/08/17 15:30) Lipase (09/08/17 15:17) Insulin Human Regular Inj (Novolin R Inj (09/08/17 15:30) Ondansetron Inj (Zofran Inj) (09/08/17 15:30) Sodium Chlor 0.9% 1000 Ml Inj (Ns 1000 M (09/08/17 15:34) Dext 5%-Nacl 0.9% 1000 Ml Inj (D5w-Ns 10 (09/08/17 15:34) Insulin Human Regular Inj (Novolin R Inj (09/08/17 15:45) Insulin Regular (Iv Infusion) (Novolin R (09/08/17 16:00) Potassium Chlor 40 Meq Premix (Kcl 40 Me (09/08/17 15:45) Potassium Chlor 40 Meq Premix (Kcl 40 Me (09/08/17 15:45) Potassium Chlor 20 Meq Premix (Kcl 20 Me (09/08/17 15:45) Potassium Chlor 20 Meq Premix (Kcl 20 Me (09/08/17 15:45) Potassium Chlor 20 Meq Premix (Kcl 20 Me (09/08/17 15:45) Potassium Chlor 20 Meq Premix (Kcl 20 Me (09/08/17 15:45) Potassium Chlor 20 Meq Premix (Kcl 20 Me (09/08/17 15:45) Potassium Chlor 20 Meq Premix (Kcl 20 Me (09/08/17 15:45) Sodium Bicarbonate 8.4% Inj (Sodium Bica (09/08/17 15:45) Sodium Phosphate Inj (Sodium Phosphate I (09/08/17 15:45) Labs Laboratory Tests Test 09/08/17 15:20 09/08/17 15:30 Blood Gas Puncture Site NURSE Blood Gas Patient Temperature 98.6 Venous Blood pH 7.07 Venous Blood Partial Pressure CO2 28 mmHg Venous Blood Partial Pressure O2 26 mmHg Venous Blood HCO3 8 mmol/L Venous Blood Oxygen Saturation 43 % Venous Blood Oxygen Content 11.7 Vol % Venous Blood Base Excess -20.5 mmol/L Blood Gas Inspired Oxygen 21 % White Blood Count 11.4 TH/MM3 Red Blood Count 6.15 MIL/MM3 Hemoglobin 19.1 GM/DL Hematocrit 56.7 % Mean Corpuscular Volume 92.2 FL Mean Corpuscular Hemoglobin 31.0 PG Mean Corpuscular Hemoglobin Concent 33.7 % Red Cell Distribution Width 13.2 % Platelet Count 347 TH/MM3 Mean Platelet Volume 9.2 FL Neutrophils (%) (Auto) 88.3 % Lymphocytes (%) (Auto) 7.3 % Monocytes (%) (Auto) 3.7 % Eosinophils (%) (Auto) 0.1 % Basophils (%) (Auto) 0.6 % Neutrophils # (Auto) 10.0 TH/MM3 Lymphocytes # (Auto) 0.8 TH/MM3 Monocytes # (Auto) 0.4 TH/MM3 Eosinophils # (Auto) 0.0 TH/MM3 Basophils # (Auto) 0.1 TH/MM3 CBC Comment DIFF FINAL Differential Comment Blood Urea Nitrogen 14 MG/DL Creatinine 1.47 MG/DL Random Glucose 310 MG/DL Total Protein 9.7 GM/DL Albumin 5.6 GM/DL Calcium Level 8.9 MG/DL Phosphorus Level 4.5 MG/DL Magnesium Level 2.0 MG/DL Alkaline Phosphatase 141 U/L Aspartate Amino Transf (AST/SGOT) 25 U/L Alanine Aminotransferase (ALT/SGPT) 34 U/L Total Bilirubin 0.7 MG/DL Sodium Level 132 MEQ/L Potassium Level 4.2 MEQ/L Chloride Level 97 MEQ/L Carbon Dioxide Level 9.6 MEQ/L Anion Gap 25 MEQ/L Estimat Glomerular Filtration Rate 60 ML/MIN Serum Osmolality 318 MOSM/KG Lactic Acid Level 3.2 mmol/L Lipase 85 U/L B-Hydroxybutyrate 9.78 MMOL/L [facility] Medical Record Reviewed: Yes Supervised Visit with EDUAR: Yes Interpretation(s) NSR 95, NL INTERVALS, NO PEAKED T WAVES NOTED, NO STEMI PATTERN Differential Diagnosis DKA V UTI V PNA V ELECTROLYTE ABNL V STEMI Critical Care Narrative CRITICAL CARE NOTE: With evaluation of the patient, labs, EKG, receipt of radiologic studies, administration of medications, reevaluation the patient and discussion of the patient with the admitting physicians, the total critical care time was [45] minutes. Time to perform other separately billable procedures was not included in the critical care time. Diagnosis Primary Impression: DKA (diabetic ketoacidoses) Qualified Codes: E10.10 - Type 1 diabetes mellitus with ketoacidosis without coma Admitting Information Admitting Physician Requests: Admit Condition: Stable Jarad Juarez MD Sep 08, 2017 16:33
[2017-09-08 16:42] VITALS: BP 139/63; PULSE 97; RESP 24; O2SAT 95
[2017-09-08] MEDS ORDERED: MISCELLANEOUS NURSING INFORMATION XX SCH (17:00)
[2017-09-08] MEDS ORDERED: CHLORHEXIDINE GLUCONATE 2 % 1 PACK (2 CLOTHS) TOP PRN (17:00)
[2017-09-08 17:10] LABS: BILIRUBIN, URINE NEG (NEG); BLOOD, URINE TRACE (NEG); GLUCOSE,URINE 1000 mg/dL (NEG); HYALINE CAST, URINE 1 /lpf (RARE); KETONE, URINE 150 mg/dL (NEG); MUCUS URINE FEW /lpf (OCC); NITRITE,URINE NEG (NEG); PH, URINE 5.5 (5.0-8.5); URINE COLOR LIGHT-YELLOW (YELLW/STRAW); URINE LEUKOCYTE ESTERASE NEG (NEG)
--- NOTE | 2017-09-08 17:32 | HHI.HP ---
[facility] Primary Care Physician No Primary Care Physician Admission Diagnosis DKA/nausea and vomiting/dehydration Diagnoses: Chief Complaint: Intractable Nausea and Vomiting Travel History International Travel<30 Days: No Contact w/Intl Traveler <30 Da: No Traveled to Known Affected Are: No History of Present Illness Very pleasant 22-year-old male with past medical history of insulin-dependent type pedis mellitus who presented to the emergency department with complaints of nausea vomiting and abdominal cramps. Symptoms started 3 days ago worsening the morning today. He is not able to keep anything down since morning intractable nausea vomiting and worsening abdominal cramps. Says he ran out of Lantus 3 days ago. Denies any fever or chills diarrhea. No cough. Says heat to 25 units of NovoLog in the morning. He had 2 similar episodes in the past with DKA. He has no history of pancreatitis. He has no chest pain or palpitations. Review of Systems Except as stated in HPI: all other systems reviewed are Neg Past Family Social History Past Medical History Insulin-dependent diabetes mellitus Past Surgical History No surgeries Reported Medications Reported Meds & Active Scripts Active Reported Novolin R Inj (Insulin Human Regular) 1,000 Unit/10 Ml Vial 0 SQ DIRECTED Sliding Scale As Directed. Lantus Inj (Insulin Glargine) 1,000 Unit/10 Ml Vial 17 Units SQ DAILY Allergies: Coded Allergies: No Known Allergies (Unverified Allergy, Unknown, 09/08/17) Family History Doesn't know his biological parents medical history Social History Occasional alcohol use. Marijuana use daily once a day. Tobacco use vapor at times. No other illicit drug use Physical Exam Vital Signs Vital Signs Date Time Temp Pulse Resp B/P (MAP) Pulse Ox O2 Delivery O2 Flow Rate FiO2 09/08/17 16:42 97 24 139/63 (88) 95 Room Air 09/08/17 15:29 87 26 100 Room Air 09/08/17 15:25 97.5 88 24 152/83 (106) 100 Physical Exam GENERAL: This is a well-nourished, well-developed patient, in no apparent distress. SKIN: No rashes, ecchymoses or lesions. Cool and dry. HEAD: Atraumatic. Normocephalic. No temporal or scalp tenderness. EYES: Pupils equal round and reactive. Extraocular motions intact. No scleral icterus. No injection or drainage. ENT: Nose without bleeding, purulent drainage or septal hematoma. Throat without erythema, tonsillar hypertrophy or exudate. Uvula midline. Airway patent. NECK: Trachea midline. No JVD or lymphadenopathy. Supple, nontender, no meningeal signs. CARDIOVASCULAR: Regular rate and rhythm without murmurs, gallops, or rubs. RESPIRATORY: Clear to auscultation. Breath sounds equal bilaterally. No wheezes , rales, or rhonchi. GASTROINTESTINAL: Abdomen soft, non-tender, nondistended. No hepato-splenomegaly , or palpable masses. No guarding. MUSCULOSKELETAL: Extremities without clubbing, cyanosis, or edema. No joint tenderness, effusion, or edema noted. No calf tenderness. Negative Homans sign bilaterally. NEUROLOGICAL: Awake and alert. Cranial nerves II through XII intact. Motor and sensory grossly within normal limits. Five out of 5 muscle strength in all muscle groups. Normal speech. Laboratory Laboratory Tests Test 09/08/17 15:20 09/08/17 15:30 09/08/17 16:30 Blood Gas Puncture Site NURSE Blood Gas Patient Temperature 98.6 Venous Blood pH 7.07 Venous Blood Partial Pressure CO2 28 Venous Blood Partial Pressure O2 26 Venous Blood HCO3 8 Venous Blood Oxygen Saturation 43 Venous Blood Oxygen Content 11.7 Venous Blood Base Excess -20.5 Blood Gas Inspired Oxygen 21 White Blood Count 11.4 Red Blood Count 6.15 Hemoglobin 19.1 Hematocrit 56.7 Mean Corpuscular Volume 92.2 Mean Corpuscular Hemoglobin 31.0 Mean Corpuscular Hemoglobin Concent 33.7 Red Cell Distribution Width 13.2 Platelet Count 347 Mean Platelet Volume 9.2 Neutrophils (%) (Auto) 88.3 Lymphocytes (%) (Auto) 7.3 Monocytes (%) (Auto) 3.7 Eosinophils (%) (Auto) 0.1 Basophils (%) (Auto) 0.6 Neutrophils # (Auto) 10.0 Lymphocytes # (Auto) 0.8 Monocytes # (Auto) 0.4 Eosinophils # (Auto) 0.0 Basophils # (Auto) 0.1 CBC Comment DIFF FINAL Differential Comment Blood Urea Nitrogen 14 Creatinine 1.47 Random Glucose 310 Total Protein 9.7 Albumin 5.6 Calcium Level 8.9 Phosphorus Level 4.5 Magnesium Level 2.0 Alkaline Phosphatase 141 Aspartate Amino Transf (AST/SGOT) 25 Alanine Aminotransferase (ALT/SGPT) 34 Total Bilirubin 0.7 Sodium Level 132 Potassium Level 4.2 Chloride Level 97 Carbon Dioxide Level 9.6 Anion Gap 25 Estimat Glomerular Filtration Rate 60 Serum Osmolality 318 Lactic Acid Level 3.2 Lipase 85 B-Hydroxybutyrate 9.78 Urine Color LIGHT-YELLOW Urine Turbidity CLEAR Urine pH 5.5 Urine Specific [place] 1.017 Urine Protein 30 Urine Glucose (UA) 1000 Urine Ketones 150 Urine Occult Blood TRACE Urine Nitrite NEG Urine Bilirubin NEG Urine Urobilinogen LESS THAN 2.0 Urine Leukocyte Esterase NEG Urine WBC LESS THAN 1 Urine Hyaline Casts 1 Urine Mucus FEW Microscopic Urinalysis Comment CULT NOT INDICATED Result Diagram: 09/08/17 1530 09/08/17 1530 Imaging Last Impressions Chest X-Ray 09/08/17 1517 Signed Impressions: Service Date/Time: Friday, September 08, 2017 15:33 - CONCLUSION: Normal examination for a patient of this age. MD Dianne Roth VTE Risk Assessment Caprini VTE Risk Assessment: Mod/High Risk (score >= 2) Caprini Risk Assessment Model Point Value = 1 Point Value = 2 Point Value = 3 Point Value = 5 Age 41-60 Minor surgery BMI > 25 kg/m2 Swollen legs Varicose veins or History of unexplained or recurrent spontaneous Oral contraceptives or hormone replacement Sepsis (< 1 month) Serious lung disease, including pneumonia (< 1 month) Abnormal pulmonary function Acute myocardial infarction Congestive heart failure (< 1 month) History of inflammatory bowel disease Medical patient at bed rest Age 61-74 Arthroscopic surgery Major open surgery (> 45 min) Laparoscopic surgery (> 45 min) Malignancy Confined to bed (> 72 hours) Immobilizing plaster cast Central venous access Age >= 75 History of VTE Family history of VTE Factor V Leiden Prothrombin [id number] Lupus anticoagulant Anticardiolipin antibodies Elevated serum homocysteine Heparin-induced thrombocytopenia Other congenital or acquired thrombophilia Stroke (< 1 month) Elective arthroplasty Hip, pelvis, or leg fracture Acute spinal cord injury (< 1 month) Prophylaxis Regimen Total Risk Factor Score Risk Level Prophylaxis Regimen 0-1 Low Early ambulation 2 Moderate Order ONE of the following: *Sequential Compression Device (SCD) *Heparin 5000 units SQ BID 3-4 Higher Order ONE of the following medications: *Heparin 5000 units SQ TID *Enoxaparin/Lovenox 40 mg SQ daily (WT < 150 kg, CrCl > 30 mL/min) *Enoxaparin/Lovenox 30 mg SQ daily (WT < 150 kg, CrCl > 10-29 mL/min) *Enoxaparin/Lovenox 30 mg SQ BID (WT < 150 kg, CrCl > 30 mL/min) AND/OR *Sequential Compression Device (SCD) 5 or more Highest Order ONE of the following medications: *Heparin 5000 units SQ TID (Preferred with Epidurals) *Enoxaparin/Lovenox 40 mg SQ daily (WT < 150 kg, CrCl > 30 mL/min) *Enoxaparin/Lovenox 30 mg SQ daily (WT < 150 kg, CrCl > 10-29 mL/min) *Enoxaparin/Lovenox 30 mg SQ BID (WT < 150 kg, CrCl > 30 mL/min) AND *Sequential Compression Device (SCD) Assessment and Plan Assessment and Plan 22-year-old male with insulin-dependent diabetes Insulin-dependent diabetes mellitus DKA, with elevated anion gap, and elevated beta hydroxybutyrate. Metabolic acidosis. Intractable nausea and vomiting Admit patient to ICU. The patient is started on insulin drip followed per protocol. Nothing by mouth advance diet when no more vomiting and when anion gap is closed Monitor blood sugar Accu-Cheks Monitor electrolytes, replace potassium as needed IV fluids per protocol Antiemetics as need DVT prophylaxis SCD/teds/Lovenox Discussed Condition With Patient, nurse, ED physician Physician Certification 2 Midnight Certification Type: Admission for Inpatient Services Order for Inpatient Services The services are ordered in accordance with Medicare regulations or non- Medicare payer requirements, as applicable. In the case of services not specified as inpatient-only, they are appropriately provided as inpatient services in accordance with the 2-midnight benchmark. Estimated LOS (days): 3 days is the estimated time the patient will need to remain in the hospital, assuming treatment plan goals are met and no additional complications. Post-Hospital Plan: Home Deann Thayer MD Sep 08, 2017 17:32
[2017-09-08 18:53] VITALS: BP 124/66; PULSE 97; RESP 22; O2SAT 100
[2017-09-08 19:14] VITALS: BP 129/71; PULSE 93; RESP 20; O2SAT 100
[2017-09-08 21:00] VITALS: BP 160/81; PULSE 99; RESP 18; TEMP 98; O2SAT 99
[2017-09-08] MEDS ORDERED: ONDANSETRON HCL 4 MG/2 ML VIAL IV PUSH PRN (22:00)
[2017-09-08] MEDS: DEXT 5%-NACL 0.9% 1000 ML INJ 1,000 ML IV SCH (22:04)
[2017-09-08 23:00] VITALS: PULSE 99
[2017-09-09] VITALS (14 sets, daily range): BP systolic 104–155; BP diastolic 53–80; PULSE 56–91; RESP 20–30; TEMP 97.6–98.8; O2SAT 100
[2017-09-09] MEDS: DEXT 5%-NACL 0.9% 1000 ML INJ 1,000 ML IV SCH ×2 (02:24→07:50)
[2017-09-09 02:45] LABS: BICARBONATE 13.7 MEQ/L (21.0-32.0); CALCIUM 8.2 MG/DL (8.5-10.1); CREATININE 1.12 MG/DL (0.60-1.30); MAGNESIUM 1.9 MG/DL (1.5-2.5); PHOSPHORUS 1.2 MG/DL (2.5-4.9)
[2017-09-09] MEDS ORDERED: CHLORHEXIDINE GLUCONATE 2 % 1 PACK (2 CLOTHS) TOP SCH (04:00)
[2017-09-09] MEDS ORDERED: SODIUM PHOSPHATE INJ 15 MMOL in SODIUM CHLORIDE 0.9% INJ 100 ML IV PRN (04:00)
[2017-09-09] MEDS ORDERED: DEXTROSE 50% IN WATER 50 ML VIAL(D50) IV PUSH PRN (08:45)
[2017-09-09] MEDS ORDERED: GLUCAGON 1 MG/ML VIAL OTHER PRN (08:45)
[2017-09-09] MEDS ORDERED: ACETAMINOPHEN/HYDROcodone 325 MG/5 MG TAB PO PRN (08:45)
[2017-09-09] MEDS ORDERED: ACETAMINOPHEN 500 MG CPLT PO PRN (08:45)
[2017-09-09] MEDS ORDERED: INSULIN DETEMIR 100 UNITS/ML VIAL SQ SCH (09:00)
[2017-09-09] MEDS: INSULIN NovoLIN REGULAR SUPPLEMENTAL SCALE SQ SCH ×3 (12:20→20:26)
[2017-09-09] MEDS ORDERED: INSULIN HUMAN NPH 1,000 UNITS/10 ML VIAL SQ ONE (13:45)
--- NOTE | 2017-09-09 13:47 | EKG ---
Date Performed: 09/08/2017 Time Performed: 16:09:14 PTAGE: 22 years EKG: Sinus rhythm BORDERLINE RIGHT AXIS DEVIATION BORDERLINE ECG NO PREVIOUS TRACING DOCTOR: Jose Wu Interpretating Date/Time 09/09/2017 13:43:44
--- NOTE | 2017-09-09 15:32 | HHI.PR ---
Subjective Remarks Patient transferred out of ICU today. Clinically he needs more improvement and documented stability, but he is transitioned out of DKA. Should his blood sugars remained stable next 24 hours could be considered for discharge. We discussed NPH versus Levemir. Patient would like, for now, to try a trial of NPH as his baseline treatment. He has a option to transfer back to [facility] as an outpatient as she has standing orders for this treatment. NPH may provide a more affordable and adjustable therapy for him. Objective Vital Signs Date Time Temp Pulse Resp B/P (MAP) Pulse Ox O2 Delivery O2 Flow Rate FiO2 09/09/17 10:00 77 27 113/67 (82) 100 09/09/17 09:00 69 27 109/56 (73) 100 09/09/17 08:10 98.5 69 23 117/59 (78) 100 09/09/17 04:00 76 09/09/17 04:00 98.6 76 20 104/53 (70) 100 09/09/17 00:00 91 09/09/17 00:00 98.8 91 22 115/71 (86) 100 09/08/17 23:00 99 09/08/17 21:00 98.0 99 18 160/81 (107) 99 09/08/17 19:14 93 20 129/71 (90) 100 Room Air 09/08/17 18:53 97 22 124/66 (85) 100 Room Air 09/08/17 16:42 97 24 139/63 (88) 95 Room Air 09/08/17 15:29 87 26 100 Room Air I/O 09/08/17 09/08/17 09/08/17 09/09/17 09/09/17 09/09/17 07:00 15:00 23:00 07:00 15:00 23:00 Intake Total 2900 ml 1039.1 ml 600 ml Output Total 600 ml 1500 ml Balance 2300 ml -460.9 ml 600 ml Intake Oral 0 ml IV Total 2900 ml 1039.1 ml 600 ml Output Urine Total 600 ml 1500 ml # Voids 1 # Bowel Movements 0 Result Diagram: 09/08/17 1530 09/09/17 0154 Objective Remarks GENERAL: NAD, A&Ox3 HEAD: Normocephalic. NECK: Supple, trachea midline. No lymphadenopathy. EYES: No scleral icterus. No injection or drainage. CARDIOVASCULAR: Regular rate and rhythm without murmurs, gallops, or rubs. RESPIRATORY: Breath sounds equal bilaterally. No accessory muscle use. GASTROINTESTINAL: Abdomen soft, non-tender, nondistended. MUSCULOSKELETAL: No cyanosis, or edema. SKIN: Warm and dry. NEURO: No focal neurological deficitis. A/P Problem List: (1) Hyponatremia ICD Code: E87.1 - Hypo-osmolality and hyponatremia Status: Acute (2) DKA (diabetic ketoacidoses) ICD Code: E13.10 - Other specified diabetes mellitus with ketoacidosis without coma Status: Acute (3) Acute renal failure ICD Code: N17.9 - Acute kidney failure, unspecified Status: Acute Assessment and Plan 22-year-old male with insulin-dependent diabetes admitted secondary to DKA Insulin-dependent diabetes mellitus DKA DKA has resolved Blood sugars not yet stabilized Nausea and vomiting have resolved Transitioned back to long-acting insulin with sliding scale Follow blood sugars and adjust as needed Treatment with NPH initiated 16 units of NPH every morning 8 units of NPH every afternoon Monitor for stabilizing blood sugars Transfer out of ICU Continue to monitor blood sugars Monitor for clinical improvement Continue IV hydration DVT prophylaxis Lovenox SCDs Discharge planning Possible discharge home tomorrow if blood sugars stabilizing patient's symptoms continue to improve Problem Qualifiers (1) DKA (diabetic ketoacidoses): Qualified Codes: E10.10 - Type 1 diabetes mellitus with ketoacidosis without coma Dmitri Chavez MD Sep 09, 2017 15:32
[2017-09-10] VITALS: BP 130/63; PULSE 57; RESP 15; TEMP 98.6; O2SAT 100
[2017-09-10 00:30] VITALS: BP 112/75; PULSE 49; RESP 14; TEMP 97.4; O2SAT 99
[2017-09-10 04:00] VITALS: BP 114/65; PULSE 60; RESP 16; TEMP 98; O2SAT 97
[2017-09-10 08:00] VITALS: BP 105/57; PULSE 60; RESP 18; TEMP 98.2; O2SAT 98
[2017-09-10] MEDS: INSULIN NovoLIN REGULAR SUPPLEMENTAL SCALE SQ SCH ×3 (08:00→17:00)
[2017-09-10] MEDS ORDERED: INSULIN HUMAN NPH 1,000 UNITS/10 ML VIAL SQ SCH ×2 (08:00→17:00)
--- NOTE | 2017-09-10 08:44 | HHI.PR ---
Subjective Remarks This is a pleasant 22 y/o Male with Diabetes Mellitus type I, who came to ER with nausea and vomit, and abdominal pain, admitted initially to Intensive Care Unit with diagnosis of DKA, discussed with patient and his mother in the room, his new laboratory gave Potassium in 3.1 his blood sugar was controlled in am, will follow during the day and continue to monitor his blood sugar, replace potassium and discharge later Objective Vital Signs Date Time Temp Pulse Resp B/P (MAP) Pulse Ox O2 Delivery O2 Flow Rate FiO2 09/10/17 08:00 98.2 60 18 105/57 (73) 98 09/10/17 04:00 Room Air 09/10/17 04:00 98.0 60 16 114/65 (81) 97 09/10/17 00:30 97.4 49 14 112/75 (87) 99 09/10/17 00:30 Room Air 09/10/17 00:00 98.6 57 15 130/63 (85) 100 09/09/17 23:00 56 09/09/17 20:15 97.6 65 27 136/80 (98) 100 09/09/17 17:13 70 24 155/75 (101) 09/09/17 16:00 98.6 73 25 129/71 (90) 09/09/17 15:00 67 26 144/74 (97) 09/09/17 14:00 68 28 146/78 (100) 09/09/17 13:00 66 24 148/78 (101) 09/09/17 12:00 98.5 66 30 131/73 (92) 100 09/09/17 11:00 63 23 121/62 (81) 100 09/09/17 10:00 77 27 113/67 (82) 100 09/09/17 09:00 69 27 109/56 (73) 100 I/O 09/09/17 09/09/17 09/09/17 09/10/17 09/10/17 09/10/17 07:00 15:00 23:00 07:00 15:00 23:00 Intake Total 1039.1 ml 600 ml 960 ml Output Total 1500 ml 1700 ml Balance -460.9 ml 600 ml -740 ml Intake Oral 0 ml 960 ml IV Total 1039.1 ml 600 ml Output Urine Total 1500 ml 1700 ml # Bowel Movements 0 0 Result Diagram: 1/26/18 1530 09/09/17 0154 Imaging Last Impressions Chest X-Ray 09/08/17 1517 Signed Impressions: Service Date/Time: Friday, September 08, 2017 15:33 - CONCLUSION: Normal examination for a patient of this age. João Holt MD Procedures None Other Results Laboratory Tests Test 09/08/17 15:20 09/08/17 15:30 09/08/17 16:30 09/08/17 20:30 Blood Gas Puncture Site NURSE Blood Gas Patient Temperature 98.6 Venous Blood pH 7.07 Venous Blood Partial Pressure CO2 28 mmHg Venous Blood Partial Pressure O2 26 mmHg Venous Blood HCO3 8 mmol/L Venous Blood Oxygen Saturation 43 % Venous Blood Oxygen Content 11.7 Vol % Venous Blood Base Excess -20.5 mmol/L Blood Gas Inspired Oxygen 21 % Serum Osmolality 318 MOSM/KG Lactic Acid Level 3.2 mmol/L Lipase 85 U/L Urine Color LIGHT-YELLOW Urine Turbidity CLEAR Urine pH 5.5 Urine Specific Warren 1.017 Urine Protein 30 mg/dL Urine Glucose (UA) 1000 mg/dL Urine Ketones 150 mg/dL Urine Occult Blood TRACE Urine Nitrite NEG Urine Bilirubin NEG Urine Urobilinogen LESS THAN 2.0 MG/DL Urine Leukocyte Esterase NEG Urine WBC LESS THAN 1 /hpf Urine Hyaline Casts 1 /lpf Urine Mucus FEW /lpf Microscopic Urinalysis Comment CULT NOT INDICATED Nasal Screen MRSA (PCR) MRSA NOT DETECTED Test 09/09/17 01:54 09/10/17 08:02 Blood Urea Nitrogen 9 MG/DL 11 MG/DL Creatinine 1.12 MG/DL 0.88 MG/DL Random Glucose 147 MG/DL 109 MG/DL Calcium Level 8.2 MG/DL 8.8 MG/DL Phosphorus Level 1.2 MG/DL Magnesium Level 1.9 MG/DL Sodium Level 137 MEQ/L 140 MEQ/L Potassium Level 3.7 MEQ/L 3.1 MEQ/L Chloride Level 112 MEQ/L 105 MEQ/L Carbon Dioxide Level 13.7 MEQ/L 22.3 MEQ/L B-Hydroxybutyrate 2.24 MMOL/L White Blood Count 5.2 TH/MM3 Red Blood Count 5.08 MIL/MM3 Hemoglobin 15.8 GM/DL Hematocrit 45.5 % Mean Corpuscular Volume 89.5 FL Mean Corpuscular Hemoglobin 31.1 PG Mean Corpuscular Hemoglobin Concent 34.7 % Red Cell Distribution Width 13.4 % Platelet Count 202 TH/MM3 Mean Platelet Volume 9.0 FL Neutrophils (%) (Auto) 63.1 % Lymphocytes (%) (Auto) 24.1 % Monocytes (%) (Auto) 11.1 % Eosinophils (%) (Auto) 1.4 % Basophils (%) (Auto) 0.3 % Neutrophils # (Auto) 3.3 TH/MM3 Lymphocytes # (Auto) 1.3 TH/MM3 Monocytes # (Auto) 0.6 TH/MM3 Eosinophils # (Auto) 0.1 TH/MM3 Basophils # (Auto) 0.0 TH/MM3 CBC Comment DIFF FINAL Differential Comment Total Protein 6.9 GM/DL Albumin 3.9 GM/DL Alkaline Phosphatase 92 U/L Aspartate Amino Transf (AST/SGOT) 17 U/L Alanine Aminotransferase (ALT/SGPT) 23 U/L Total Bilirubin 0.7 MG/DL Anion Gap 13 MEQ/L Estimat Glomerular Filtration Rate 109 ML/MIN Objective Remarks GENERAL: This is a well-nourished, well-developed patient, in no apparent distress. SKIN: No rashes, ecchymoses or lesions. Cool and dry. HEAD: Atraumatic. Normocephalic. No temporal or scalp tenderness. EYES: Pupils equal round and reactive. Extraocular motions intact. No scleral icterus. No injection or drainage. ENT: Nose without bleeding, purulent drainage or septal hematoma. Throat without erythema, tonsillar hypertrophy or exudate. Uvula midline. Airway patent. NECK: Trachea midline. No JVD or lymphadenopathy. Supple, nontender, no meningeal signs. CARDIOVASCULAR: Regular rate and rhythm without murmurs, gallops, or rubs. RESPIRATORY: Clear to auscultation. Breath sounds equal bilaterally. No wheezes , rales, or rhonchi. GASTROINTESTINAL: Abdomen soft, non-tender, nondistended. No hepato-splenomegaly , or palpable masses. No guarding. MUSCULOSKELETAL: Extremities without clubbing, cyanosis, or edema. No joint tenderness, effusion, or edema noted. No calf tenderness. Negative Homans sign bilaterally. NEUROLOGICAL: Awake and alert. Cranial nerves II through XII intact. Motor and sensory grossly within normal limits. Five out of 5 muscle strength in all muscle groups. Normal speech. Medications and IVs Current Medications Medications (Trade) Dose Ordered Sig/Jen Route Start Time Stop Time Status Last Admin (NS Flush) 2 ml UNSCH PRN IVF 09/08/17 15:30 (Zofran Inj) 4 mg Q6HR PRN IV PUSH 09/08/17 22:00 09/09/17 04:31 (D50w (Vial) Inj) 50 ml UNSCH PRN IV PUSH 09/09/17 08:45 (Glucagon Inj) 1 mg UNSCH PRN OTHER 09/09/17 08:45 (NovoLIN R SUPPLEMENTAL SCALE) 1 ACHS SLIDING SCALE SQ 09/09/17 12:00 09/09/17 20:26 (Dow 5-325 Mg) 1 tab Q4H PRN PO 09/09/17 08:45 09/09/17 09:43 (Tylenol) 500 mg Q4H PRN PO 09/09/17 08:45 (NovoLIN N INJ) 8 units DAILY@17 SQ 09/10/17 17:00 (NovoLIN N INJ) 16 units DAILY@08 SQ 09/10/17 08:00 A/P Assessment and Plan (1) Hyponatremia ICD Code: E87.1 - Hypo-osmolality and hyponatremia Status: Acute (2) DKA (diabetic ketoacidoses) ICD Code: E13.10 - Other specified diabetes mellitus with ketoacidosis without coma Status: Acute (3) Acute renal failure ICD Code: N17.9 - Acute kidney failure, unspecified Status: Acute Insulin-dependent diabetes mellitus DKA DKA has resolved Blood sugars controlled in am Nausea and vomiting have resolved Transitioned back to long-acting insulin with sliding scale the patient prefers now to continue Levemir Electrolyte derangement on replacement. DVT prophylaxis Lovenox SCDs Discussed with patient and his Mother. plan for discharge later. Discharge Planning Expected for discharge later today. Ricardo Monge MD Sep 10, 2017 08:44
[2017-09-10 10:21] LABS: AUTOMATED NEUTROPHIL # 3.3 TH/MM3 (1.8-7.7); BASOPHIL % 0.3 % (0.0-2.0); EOSINOPHIL # 0.1 TH/MM3 (0-0.4); EOSINOPHIL % 1.4 % (0.0-4.0); HEMATOCRIT 45.5 % (39.0-51.0); HEMOGLOBIN 15.8 GM/DL (13.0-17.0); LYMPH % 24.1 % (9.0-44.0); LYMPHOCYTE # 1.3 TH/MM3 (1.0-4.8); MEAN CELL VOLUME 89.5 FL (80.0-100.0); MEAN CORPUSCULAR HEMOGLOBIN 31.1 PG (27.0-34.0); MEAN CORPUSCULAR HGB CONC 34.7 % (32.0-36.0); MONO % 11.1 % (0.0-8.0); MONOCYTE # 0.6 TH/MM3 (0-0.9); NEUT % 63.1 % (16.0-70.0); PLATELET COUNT 202 TH/MM3 (150-450); RED BLOOD COUNT 5.08 MIL/MM3 (4.50-5.90); RED CELL DISTRIBUTION WIDTH 13.4 % (11.6-17.2); WHITE BLOOD COUNT 5.2 TH/MM3 (4.0-11.0)
[2017-09-10 11:02] LABS: ALBUMIN 3.9 GM/DL (3.4-5.0); ALT (GPT) 23 U/L (12-78); AST (GOT) 17 U/L (15-37); BICARBONATE 22.3 MEQ/L (21.0-32.0); BLOOD UREA NITROGEN 11 MG/DL (7-18); CALCIUM 8.8 MG/DL (8.5-10.1); CHLORIDE 105 MEQ/L (98-107); CREATININE 0.88 MG/DL (0.60-1.30); GLOMERULAR FILTRATION RATE 109 ML/MIN (>89); GLUCOSE,RANDOM 109 MG/DL (74-106); SODIUM (NA) 140 MEQ/L (136-145)
[2017-09-10 11:04] LABS: ALKALINE PHOSPHATASE 92 U/L (45-117); TOTAL BILIRUBIN ADULT 0.7 MG/DL (0.2-1.0); TOTAL PROTEIN 6.9 GM/DL (6.4-8.2)
[2017-09-10] MEDS ORDERED: POTASSIUM CHLORIDE 20 MEQ CONTROLLED RELEASE TAB PO ONE ×3 (11:30→18:30)
[2017-09-10 12:00] VITALS: BP 121/56; PULSE 63; RESP 18; TEMP 98.1; O2SAT 100
[2017-09-10 16:00] VITALS: BP 123/57; PULSE 62; RESP 18; TEMP 97.8; O2SAT 100
[2017-09-10] MEDS ORDERED: LEVEMIR SQ (17:05)
[2017-09-10] MEDS ORDERED: INSULIN DETEMIR 100 UNITS/ML VIAL SQ SCH (17:30)
--- NOTE | 2017-09-10 18:54 | HHI.DS ---
Discharge Summary Admission Date Sep 08, 2017 at 16:45 Discharge Date: Sep 10, 2017 Admitting Diagnosis DKA/nausea and vomiting/dehydration (1) DKA (diabetic ketoacidoses) ICD Code: E13.10 - Other specified diabetes mellitus with ketoacidosis without coma Diagnosis: Principal Status: Acute Procedures None Brief History - From Admission Very pleasant 22-year-old male with past medical history of insulin-dependent type pedis mellitus who presented to the emergency department with complaints of nausea vomiting and abdominal cramps. Symptoms started 3 days ago worsening the morning today. He is not able to keep anything down since morning intractable nausea vomiting and worsening abdominal cramps. Says he ran out of Lantus 3 days ago. Denies any fever or chills diarrhea. No cough. Says heat to 25 units of NovoLog in the morning. He had 2 similar episodes in the past with DKA. He has no history of pancreatitis. He has no chest pain or palpitations. CBC/BMP: 09/10/17 0802 09/10/17 1713 Significant Findings Laboratory Tests Test 09/08/17 15:20 09/08/17 15:30 09/08/17 16:30 09/08/17 20:30 Venous Blood pH 7.07 (7.360-7.400) Venous Blood Partial Pressure CO2 28 mmHg (44-48) Venous Blood Partial Pressure O2 26 mmHg (35-40) Venous Blood HCO3 8 mmol/L (22-26) Venous Blood Oxygen Saturation 43 % (70-76) Venous Blood Base Excess -20.5 mmol/L (-2-2) White Blood Count 11.4 TH/MM3 (4.0-11.0) Red Blood Count 6.15 MIL/MM3 (4.50-5.90) Hemoglobin 19.1 GM/DL (13.0-17.0) Hematocrit 56.7 % (39.0-51.0) Neutrophils (%) (Auto) 88.3 % (16.0-70.0) Lymphocytes (%) (Auto) 7.3 % (9.0-44.0) Neutrophils # (Auto) 10.0 TH/MM3 (1.8-7.7) Lymphocytes # (Auto) 0.8 TH/MM3 (1.0-4.8) Creatinine 1.47 MG/DL (0.60-1.30) Random Glucose 310 MG/DL (74-106) Total Protein 9.7 GM/DL (6.4-8.2) Albumin 5.6 GM/DL (3.4-5.0) Alkaline Phosphatase 141 U/L (45-117) Sodium Level 132 MEQ/L (136-145) Chloride Level 97 MEQ/L (98-107) Carbon Dioxide Level 9.6 MEQ/L (21.0-32.0) Anion Gap 25 MEQ/L (5-15) Estimat Glomerular Filtration Rate 60 ML/MIN (>89) Serum Osmolality 318 MOSM/KG (275-295) Lactic Acid Level 3.2 mmol/L (0.4-2.0) B-Hydroxybutyrate 9.78 MMOL/L (0.00-0.39) Urine Protein 30 mg/dL (NEG-TRACE) Urine Glucose (UA) 1000 mg/dL (NEG) Urine Ketones 150 mg/dL (NEG) Urine Occult Blood TRACE (NEG) Urine Mucus FEW /lpf (OCC) Test 09/09/17 01:54 09/10/17 08:02 09/10/17 17:13 Random Glucose 147 MG/DL (74-106) 109 MG/DL (74-106) Calcium Level 8.2 MG/DL (8.5-10.1) Phosphorus Level 1.2 MG/DL (2.5-4.9) Chloride Level 112 MEQ/L (98-107) Carbon Dioxide Level 13.7 MEQ/L (21.0-32.0) Estimat Glomerular Filtration Rate 83 ML/MIN (>89) B-Hydroxybutyrate 2.24 MMOL/L (0.00-0.39) Monocytes (%) (Auto) 11.1 % (0.0-8.0) Potassium Level 3.1 MEQ/L (3.5-5.1) Imaging Last Impressions Chest X-Ray 09/08/17 4680 Signed Impressions: Service Date/Time: Friday, September 08, 2017 15:33 - CONCLUSION: Normal examination for a patient of this age. João Holt MD PE at Discharge GENERAL: This is a well-nourished, well-developed patient, in no apparent distress. SKIN: No rashes, ecchymoses or lesions. Cool and dry. HEAD: Atraumatic. Normocephalic. No temporal or scalp tenderness. EYES: Pupils equal round and reactive. Extraocular motions intact. No scleral icterus. No injection or drainage. ENT: Nose without bleeding, purulent drainage or septal hematoma. Throat without erythema, tonsillar hypertrophy or exudate. Uvula midline. Airway patent. NECK: Trachea midline. No JVD or lymphadenopathy. Supple, nontender, no meningeal signs. CARDIOVASCULAR: Regular rate and rhythm without murmurs, gallops, or rubs. RESPIRATORY: Clear to auscultation. Breath sounds equal bilaterally. No wheezes , rales, or rhonchi. GASTROINTESTINAL: Abdomen soft, non-tender, nondistended. No hepato-splenomegaly , or palpable masses. No guarding. MUSCULOSKELETAL: Extremities without clubbing, cyanosis, or edema. No joint tenderness, effusion, or edema noted. No calf tenderness. Negative Homans sign bilaterally. NEUROLOGICAL: Awake and alert. Cranial nerves II through XII intact. Motor and sensory grossly within normal limits. Five out of 5 muscle strength in all muscle groups. Normal speech. Hospital Course This is a pleasant 22 y/o Male with Diabetes Mellitus type I, who came to ER with nausea and vomit, and abdominal pain, admitted initially to Intensive Care Unit with diagnosis of DKA, discussed with patient and his mother in the room, his new laboratory gave Potassium in 3.1 his blood sugar was controlled in am, will follow during the day and continue to monitor his blood sugar, replace potassium and discharge later Assessment and Plan (1) Hyponatremia ICD Code: E87.1 - Hypo-osmolality and hyponatremia Status: Acute (2) DKA (diabetic ketoacidoses) ICD Code: E13.10 - Other specified diabetes mellitus with ketoacidosis without coma Status: Acute (3) Acute renal failure ICD Code: N17.9 - Acute kidney failure, unspecified Status: Acute Insulin-dependent diabetes mellitus DKA DKA has resolved Blood sugars controlled in am during the afternoon adjusted medicines at this time blood sugar 179 Nausea and vomiting have resolved Transitioned back to long-acting insulin with sliding scale the patient prefers now to continue Levemir will continue 16 units in am and 10 units at bedtime Electrolyte derangement Replaced Potassium now 3.5 will give 20 meq of potassium chloride and discharge Home and follow with PCP DVT prophylaxis Lovenox SCDs Discussed with patient and his Mother. plan for discharge later. Discharge Planning Discharge Home now Pt Condition on Discharge: Good Discharge Disposition: Discharge Home Discharge Time: <= 30 minutes Discharge Instructions DIET: Follow Instructions for: Diabetic Diet Activities you can perform: Regular-No Restrictions Ricardo Monge MD Sep 10, 2017 18:54
[2017-09-11] MEDS ORDERED: INSULIN DETEMIR 100 UNITS/ML VIAL SQ SCH (06:00)
== END 2017-09-10 19:55 | disposition home or self-care (01) | DRG 638 ==
LOC: NEPC 15:04 → NEDA 16:45 → HIMN 20:20 → N04A 09-10 00:30
PROVIDERS: ADMIT Internal Medicine; ATTEND Internal Medicine
DX: E10.10 Type 1 diabetes mellitus with ketoacidosis without coma (principal); N17.9 Acute kidney failure, unspecified; E87.1 Hypo-osmolality and hyponatremia; E86.0 Dehydration; Z79.4 Long term (current) use of insulin; Z72.0 Tobacco use
CPT/HCPCS: 71045; 80048; 80053; 81001; 82010; 82805; 82948; 83605; 83690; 83735; 83930; 84100; 84132; 85025; 87641; 93005; 96361; 96374; 96375; J1815; J1817; J2405; J3480; J7030; J7042